=== PATIENT | male | born 2005 | race Caucasian/White ===

== ENCOUNTER 2024-11-15 10:47 | Emergency (ER) | payer OTHER ==
[~2024-11-15] VITALS: Ht 180.3 cm; Wt 73.0 kg
[2024-11-15] MEDS ORDERED: AMOX-427 PO (11:04)
[2024-11-15 11:15] VITALS: BP 109/60; TEMP 98.6; O2SAT 97
== END 2024-11-15 11:16 | disposition home or self-care (01) ==
LOC: ER 10:54
DX: J02.9 Acute pharyngitis, unspecified (principal); F17.200 Nicotine dependence, unspecified, uncomplicated